=== PATIENT | female | born 1990 | race American Indian/Alaskan Native ===

== ENCOUNTER 2017-05-09 18:15 | Emergency (ER) | payer MEDICAID ==
[2017-05-09 18:29] VITALS: BP 134/81
[2017-05-09] MEDS ORDERED: Acetaminophen/oxyCODONE 325-5 MG Tab PO ONE (19:37)
--- NOTE | 2017-05-09 19:37 | EDM.PDOC ---
ED HPI GENERAL MEDICAL PROBLEM - General Chief Complaint: Lower Extremity Injury/Pain Stated Complaint: RT ANKLE PAIN Time Seen by Provider: 05/09/17 18:30 Source of Information: Reports: Patient History Limitations: Reports: No Limitations - History of Present Illness INITIAL COMMENTS - FREE TEXT/NARRATIVE: pt arrived with a swollen painful rt ankle. She went off a curb and she twisted her rt ankle. She has pain on the lateral aspect of the ankle and into the foot. Onset: Other ( last nite. ) Duration: Hour(s): Location: Reports: Lower Extremity, Right Associated Symptoms: Reports: No Other Symptoms Right Ankle Pain Score (Numeric/FACES): 8 - Related Data Allergies Allergy/AdvReac Type Severity Reaction Status Date / Time No Known Allergies Allergy Verified 05/09/17 18:33 Home Meds: Home Meds Ibuprofen [Motrin] 800 mg PO Q6HR PRN 03/24/16 [History] Mirtazapine 7.5 mg PO DAILY 05/09/17 [History] Venlafaxine HCl [Venlafaxine ER] 75 mg PO DAILY 05/09/17 [History] cloNIDine HCl [Clonidine HCl] 0.1 mg PO DAILY 05/09/17 [History] Past Medical History - Past Health History Medical/Surgical History: Denies Medical/Surgical History HEENT History: Reports: Impaired Vision Other HEENT History: c/o of L upper tooth pain 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 , 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: G-5 P-4 Psychiatric History: Reports: Anxiety, Depression, PTSD Hematologic History: Reports: Anemia - Past Surgical History Female Surgical History: Reports: Salpingo-Oophorectomy Other Female Surgeries/Procedures: right Social & Family History - Tobacco Use Smoking Status *Q: Never Smoker Second Hand Smoke Exposure: No - Caffeine Use Caffeine Use: Reports: Soda - Alcohol Use Days Per Week of Alcohol Use: 0 - Recreational Drug Use Recreational Drug Use: No Review of Systems - Review of Systems Review Of Systems: See Below Constitutional: Reports: No Symptoms Eyes: Reports: No Symptoms Ears: Reports: No Symptoms Nose: Reports: No Symptoms Mouth/Throat: Reports: No Symptoms Respiratory: Reports: No Symptoms Cardiovascular: Reports: No Symptoms GI/Abdominal: Reports: No Symptoms Genitourinary: Reports: No Symptoms Musculoskeletal: Reports: Other (pain in rt ankle. ) Skin: Reports: No Symptoms Neurological: Reports: No Symptoms ED EXAM, GENERAL - Physical Exam Exam: See Below Free Text/Narrative:: pt is having alot of pain in rt anle and into the foot. Exam Limited By: No Limitations General Appearance: Alert, Anxious Nose: Normal Inspection Throat/Mouth: Normal Inspection Head: Atraumatic Neck: Normal Inspection Respiratory/Chest: No Respiratory Distress Cardiovascular: Regular Rate, Rhythm Extremities: Other (pt has a painful rt ankle with swelling laterally, She is also tender down into the foot. ) Neurological: Alert, Oriented, Normal Cognition Psychiatric: Normal Affect Course - Vital Signs Last Recorded V/S: Last Vital Signs Temp 36.8 C 05/09/17 18:31 Pulse 94 05/09/17 18:31 Resp 15 05/09/17 18:31 BP 134/81 05/09/17 18:31 Pulse Ox 95 05/09/17 18:31 - Orders/Labs/Meds Orders: Active Orders 24 hr Category Date Time Status Ankle Min 3V Rt [CR] Stat Exams 05/09/17 18:36 Ordered Foot Comp Min 3V Rt [CR] Stat Exams 05/09/17 18:36 Taken Meds: Medications Discontinued Medications Generic Name Dose Route Start Last Admin Trade Name Freq PRN Reason Stop Dose Admin Oxycodone/Acetaminophen 1 tab 05/09/17 19:37 Percocet 325-5 Mg PO 05/09/17 19:38 ONETIME ONE - Re-Assessments/Exams Free Text/Narrative Re-Assessment/Exam: 05/09/17 19:48 pt had an xray of the ankle and foot which was neg. Departure - Departure Time of Disposition: 19:35 Disposition: Home, Self-Care 01 Condition: Fair Clinical Impression: Moderate right ankle sprain - Discharge Information Instructions: Ankle Sprain Referrals: PCP,None [Primary Care Provider] - Forms: ED Department Discharge Care Plan Goals: elevate ice--cool pack to area, crutches. motrin 600mg tid, tyleno 3 1 tab q6h prn for pain. appt with regular Dr In 1 week send a ice pack home with the pt. , Cool packs should be used for the next 72 hours and then use moist heat or soak warm water stirup splint will be applied - My Orders Last 24 Hours: My Active Orders 05/09/17 18:36 Ankle Min 3V Rt [CR] Stat Foot Comp Min 3V Rt [CR] Stat - Assessment/Plan Last 24 Hours: My Active Orders 05/09/17 18:36 Ankle Min 3V Rt [CR] Stat Foot Comp Min 3V Rt [CR] Stat
--- NOTE | 2017-05-10 08:51 | CR ---
Ankle Min 3V Rt, Foot Comp Min 3V Rt INDICATION: painful rt foot FINDINGS: 3 views of the right ankle and 3 views of the right foot. Tiny linear calcifications adjac ent to the distal fibula could represent a tiny acute or chronic avulsion fracture. Accessory ossicl e adjacent to the cuboid. Right foot and ankle are otherwise negative.
== END 2017-05-09 19:55 | disposition home or self-care (01) ==
LOC: JP.ED 18:15
DX: S93.401A Sprain of unspecified ligament of right ankle, initial encounter (principal); F41.9 Anxiety disorder, unspecified; F32.9 Major depressive disorder, single episode, unspecified; D64.9 Anemia, unspecified; F43.10 Post-traumatic stress disorder, unspecified; Z90.721 Acquired absence of ovaries, unilateral; Z79.899 Other long term (current) drug therapy; X50.1XXA Overexertion from prolonged static or awkward postures, initial encounter
CPT/HCPCS: 73610; 73630; 99284; A9270; 99283

== ENCOUNTER 2017-06-16 02:02 | Emergency (ER) | payer MEDICAID ==
--- NOTE | 2017-06-16 02:40 | EDM.PDOCBH ---
[id number]: [facility] [place] Time Seen by Provider: 06/16/17 02:20 Source of Information: Reports: Family History Limitations: Reports: Intoxication - History of Present Illness INITIAL COMMENTS - FREE TEXT/NARRATIVE: 26-year-old female brought in by her family because she is acutely intoxicated with heroin and possibly other unknown chemicals. She is very agitated, a family member gave her a dose of Narcan. She is confused but very stable physically. No fever. Vitals are stable. Onset: Unknown/Unsure Associated Symptoms: Denies: Nausea/Vomiting - Related Data Allergies Allergy/AdvReac Type Severity Reaction Status Date / Time No Known Allergies Allergy Verified 06/16/17 02:26 Home Meds: Home Meds Ibuprofen [Motrin] 800 mg PO Q6HR PRN 03/24/16 [History] Mirtazapine 7.5 mg PO DAILY 05/09/17 [History] Venlafaxine HCl [Venlafaxine ER] 75 mg PO DAILY 05/09/17 [History] cloNIDine HCl [Clonidine HCl] 0.1 mg PO DAILY 05/09/17 [History] Past Medical History - Past Health History Medical/Surgical History: Denies Medical/Surgical History HEENT History: Reports: Impaired Vision Other HEENT History: c/o of L upper tooth pain 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 , 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: G-5 P-4 Psychiatric History: Reports: Anxiety, Depression, PTSD Hematologic History: Reports: Anemia - Past Surgical History Female Surgical History: Reports: Salpingo-Oophorectomy Other Female Surgeries/Procedures: right Social & Family History - Tobacco Use Smoking Status *Q: Never Smoker Second Hand Smoke Exposure: No - Caffeine Use Caffeine Use: Reports: Soda - Alcohol Use Days Per Week of Alcohol Use: 0 - Recreational Drug Use Recreational Drug Use: No ED ROS GENERAL - Review of Systems Review Of Systems: Unable To Obtain ED EXAM, BEHAVIORAL HEALTH - Physical Exam Exam: See Below Exam Limited By: Altered Mental Status General Appearance: Alert, Mild Distress (Agitated and anxious, uncooperative) Eye Exam: Bilateral Eye: EOMI (Focuses well when spoken to) Respiratory/Chest: No Respiratory Distress, Lungs Clear Cardiovascular: Regular Rate, Rhythm GI/Abdominal: Non-Tender Neurological: Disoriented to Place, Disoriented to Time Psychiatric: Agitated Skin Exam: Warm, Dry COURSE, BEHAVIORAL HEALTH COMP - Course Vital Signs: Last Vital Signs Temp 98.7 F 06/16/17 02:18 Pulse 98 06/16/17 02:56 Resp 20 06/16/17 02:56 BP 141/91 H 06/16/17 02:56 Pulse Ox 99 06/16/17 02:56 Re-Assessment/Re-Exam: Patient was monitored for over half an hour and continued to be physically stable and became more alert. She was still agitated but the family wanted to take her home, she would not supply a urine. She was discharged with the advice to avoid illicit drug use in the future. Departure - Departure Time of Disposition: 02:58 Disposition: Home, Self-Care 01 Condition: Fair Clinical Impression: Drug abuse - Discharge Information Instructions: Opioid Overdose Referrals: PCP,None [Primary Care Provider] - Forms: ED Department Discharge Care Plan Goals: Avoid using illicit drugs in the future.
[2017-06-16 02:57] VITALS: BP 141/91
== END 2017-06-16 02:58 | disposition home or self-care (01) ==
LOC: JP.ED 02:02
DX: F19.10 Other psychoactive substance abuse, uncomplicated (principal); F41.9 Anxiety disorder, unspecified; F32.9 Major depressive disorder, single episode, unspecified; Z79.899 Other long term (current) drug therapy; Z90.721 Acquired absence of ovaries, unilateral
CPT/HCPCS: 99283; 99284

== ENCOUNTER 2019-07-13 05:04 | Emergency (ER) | payer MEDICAID ==
[2019-07-13 05:28] VITALS: BP 153/99; PULSE 106
--- NOTE | 2019-07-13 05:49 | EDM.PDOC ---
ED HPI GENERAL MEDICAL PROBLEM - General Chief Complaint: Upper Extremity Injury/Pain Stated Complaint: RED LINE GOING UP LEFT ARM Time Seen by Provider: 07/13/19 05:35 Source of Information: Reports: Patient, Old Records, RN History Limitations: Reports: No Limitations - History of Present Illness INITIAL COMMENTS - FREE TEXT/NARRATIVE: 28 yo NA female IV drug user presents with a concern that she has an infection in her L arm. No fevers. Use IV drugs via her L hand earlier last evening. She denies L axillary tenderness or chills. No other sx's. No self tx prior to arrival. 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) Left Arm Pain Score (Numeric/FACES): 3 - Related Data Allergies Allergy/AdvReac Type Severity Reaction Status Date / Time No Known Allergies Allergy Verified 07/13/19 05:27 Home Meds: Home Meds Ibuprofen [Motrin] 800 mg PO Q6HR PRN 03/24/16 [History] Mirtazapine 7.5 mg PO DAILY 05/09/17 [History] Venlafaxine HCl [Venlafaxine ER] 75 mg PO DAILY 05/09/17 [History] cloNIDine HCl [Clonidine HCl] 0.1 mg PO DAILY 05/09/17 [History] Past Medical History - Past Health History Medical/Surgical History: Denies Medical/Surgical History HEENT History: Reports: Impaired Vision Other HEENT History: c/o of L upper tooth pain 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 , 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 Psychiatric History: Reports: Addiction, Anxiety, Depression, PTSD Endocrine/Metabolic History: Reports: Obesity/BMI 30+ Hematologic History: Reports: Anemia - Past Surgical History Female Surgical History: Reports: Salpingo-Oophorectomy Other Female Surgeries/Procedures: right Social & Family History - Tobacco Use Smoking Status *Q: Never Smoker - Caffeine Use Caffeine Use: Reports: Coffee, Energy Drinks, Soda, Tea - Recreational Drug Use Recreational Drug Use: Yes Recreational Drug Type: Reports: Heroin, Methamphetamine Review of Systems - Review of Systems Review Of Systems: See Below Constitutional: Reports: No Symptoms Musculoskeletal: Reports: No Symptoms Skin: Reports: Other (Minimally reddened L arm) Neurological: Reports: No Symptoms ED EXAM, GENERAL - Physical Exam Exam: See Below Exam Limited By: No Limitations General Appearance: Alert, WD/WN, No Apparent Distress Eye Exam: Bilateral Eye: Normal Inspection Ears: Normal External Exam, Normal Canal, Hearing Grossly Normal Ear Exam: Bilateral Ear: Auricle Normal, Canal Normal Nose: Normal Inspection, No Blood Throat/Mouth: Normal Inspection, Normal Lips, Normal Oropharynx, Normal Voice, No Airway Compromise Head: Atraumatic, Normocephalic Respiratory/Chest: No Respiratory Distress, No Accessory Muscle Use Cardiovascular: Regular Rate, Rhythm, No Edema, Tachycardia Back Exam: No: CVA Tenderness (R), CVA Tenderness (L) Extremities: Normal Inspection, Normal Range of Motion, Non-Tender, No Pedal Edema. No: Pedal Edema Neurological: Alert, Oriented, CN II-XII Intact, Normal Cognition, No Motor/ Sensory Deficits Psychiatric: Normal Affect, Normal Mood Skin Exam: Warm, Dry, Intact, Erythema (Very fainy redness to the medial L arm from the forearm to just prox to that elbow. Area is warmer than the surrounding skin. No axillary tenderness. ), Increased Warmth. No: Wound/ Incision Course - Vital Signs Last Recorded V/S: Last Vital Signs Temp 35.7 C 07/13/19 05:25 Pulse 106 H 07/13/19 05:25 Resp 18 07/13/19 05:25 BP 153/99 H 07/13/19 05:25 Pulse Ox 97 07/13/19 05:25 Departure - Departure Time of Disposition: 05:49 Disposition: Home, Self-Care 01 Condition: Good Clinical Impression: Cellulitis Qualifiers: Site of cellulitis: extremity Site of cellulitis of extremity: upper extremity Laterality: left Qualified Code(s): L03.114 - Cellulitis of left upper limb - Discharge Information *PRESCRIPTION DRUG MONITORING PROGRAM REVIEWED*: No *COPY OF PRESCRIPTION DRUG MONITORING REPORT IN PATIENT ALLISON: No Instructions: Cellulitis, Adult, [id number] Referrals: PCP,None [Primary Care Provider] - Additional Instructions: Take cephalexin as directed. Recheck with your provider tomorrow in the clinic. Acetaminophen as needed for pain relief.
== END 2019-07-13 05:56 | disposition home or self-care (01) ==
LOC: JP.ED 05:04
DX: L03.114 Cellulitis of left upper limb (principal); F32.9 Major depressive disorder, single episode, unspecified; F41.9 Anxiety disorder, unspecified; E66.9 Obesity, unspecified; Z79.899 Other long term (current) drug therapy; Z86.2 Personal history of diseases of the blood and blood-forming organs and certain disorders involving the immune mechanism; Z90.722 Acquired absence of ovaries, bilateral; Z68.32 Body mass index [BMI] 32.0-32.9, adult
CPT/HCPCS: 99283

== ENCOUNTER 2020-06-26 16:06 | Emergency (ER) | payer MEDICAID ==
[2020-06-26 16:22] VITALS: BP 110/80; PULSE 97
--- NOTE | 2020-06-26 16:48 | EDM.PDOC ---
ED HPI GENERAL MEDICAL PROBLEM - General Chief Complaint: Eye Problems Stated Complaint: PAIN IN RT EYE Time Seen by Provider: 06/26/20 16:30 Source of Information: Reports: Patient History Limitations: Reports: No Limitations - History of Present Illness INITIAL COMMENTS - FREE TEXT/NARRATIVE: 29-year-old female with a swollen nodular lesions on her eyelids, 3 of them on the right and one on the left over the past 3 to 4 days. No visual complaints, fevers or chills. 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 AND 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: G-5 P-4 Psychiatric History: Reports: Addiction, Anxiety, Depression, PTSD Endocrine/Metabolic History: Reports: Obesity/BMI 30+ Hematologic History: Reports: Anemia - Past Surgical History Female Surgical History: Reports: Salpingo-Oophorectomy Other Female Surgeries/Procedures: right Social & Family History - Tobacco Use Smoking Status *Q: Never Smoker - Caffeine Use Caffeine Use: Reports: Coffee, Soda - Recreational Drug Use Recreational Drug Use: No ED ROS GENERAL - Review of Systems Review Of Systems: See Below Constitutional: Denies: Fever, Chills HEENT: Reports: Eye Pain (Some discomfort in the right eye from the pressure of the eyelid). Denies: Vision Change Respiratory: Denies: Shortness of Breath GI/Abdominal: Reports: No Symptoms Skin: Reports: Erythema (Erythema and swelling of the right upper and lower eyelids, the left upper eyelid is inflamed as well) ED EXAM GENERAL W FULL EYE - Physical Exam Exam: See Below Exam Limited By: No Limitations General Appearance: Alert, No Apparent Distress Eye Exam: Bilateral Eye: EOMI Eyelids: Left: Erythema, Bilateral: Stye (3 separate styes are present on the upper and lower right eyelids, and another stye on the left eyelid) Conjunctiva & Sclera: Bilateral: Conjunctival Edema Cornea Exam: Bilateral: Normal Appearance Extraocular Movements: Bilateral: Intact Head: Atraumatic Respiratory/Chest: No Respiratory Distress, Lungs Clear Neurological: Alert, Oriented Psychiatric: Normal Affect, Normal Mood Course - Vital Signs Last Recorded V/S: Last Vital Signs Temp 98.2 F 06/26/20 16:30 Pulse 97 06/26/20 16:30 Resp 16 06/26/20 16:30 BP 110/80 06/26/20 16:30 Pulse Ox 97 06/26/20 16:30 - Re-Assessments/Exams Free Text/Narrative Re-Assessment/Exam: 06/26/20 16:46 Very concerning that she has so many separate styes at the same time on both eyes simultaneously. I am concerned about a bacterial inflammation such as MRSA. She was placed on clindamycin 300 mg 3 times a day for 5 days and erythromycin ointment. Continue with warm compresses to the eyes and recheck with the eye physician on Sunday or Sunday if not improving satisfactorily. Departure - Departure Time of Disposition: 16:52 Disposition: Home, Self-Care 01 Clinical Impression: Hordeolum externum (stye) Qualifiers: Laterality: right Eyelid: upper Qualified Code(s): H00.011 - Hordeolum externum right upper eyelid - Discharge Information Instructions: Stye Referrals: PCP,None [Primary Care Provider] - Forms: ED Department Discharge Care Plan Goals: Take 2 pills of antibiotic 3 times a day until gone, and use ointment in your eyes 3 times a day as well. Recheck at [facility] in [place] in 2 to 3 days if not improving rapidly. Sepsis Event Note (ED) - Evaluation Sepsis Screening Result: No Definite Risk
== END 2020-06-26 16:52 | disposition home or self-care (01) ==
LOC: JP.ED 16:06
DX: H00.011 Hordeolum externum right upper eyelid (principal); E66.9 Obesity, unspecified; Z68.32 Body mass index [BMI] 32.0-32.9, adult
CPT/HCPCS: 99283

== ENCOUNTER 2020-07-06 18:51 | Emergency (ER) | payer MEDICAID ==
[2020-07-06 19:31] VITALS: BP 121/71; PULSE 105
[2020-07-06] MEDS ORDERED: Ketorolac 30 MG/ML SDV IM ONE (20:01)
--- NOTE | 2020-07-06 20:03 | EDM.PDOC ---
ED HPI GENERAL MEDICAL PROBLEM - General Chief Complaint: Lower Extremity Injury/Pain Stated Complaint: INJURED L ANKLE Time Seen by Provider: 07/06/20 19:47 Source of Information: Reports: Patient, RN Notes Reviewed History Limitations: Reports: No Limitations - History of Present Illness INITIAL COMMENTS - FREE TEXT/NARRATIVE: 29-year-old female presents emergency department a complaint of left ankle pain, she injured herself last night with a twisting injury ankle inversion pain is been so severe she is unable to bear weight has been using crutches at home Left Ankle Pain Score (Numeric/FACES): 8 - Related Data Allergies Allergy/AdvReac Type Severity Reaction Status Date / Time No Known Allergies Allergy Verified 07/06/20 19:33 Home Meds: Home Meds Pnv No.95/Ferrous Fum/Folic AC [ Vitamins Tablet] 1 tab PO DAILY 06/26/20 [History] Erythromycin Base [Erythromycin] 1 drop EYEBOTH BID 07/06/20 [History] Past Medical History HEENT History: Reports: Impaired Vision Other HEENT History: c/o of L upper tooth pain 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 , 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 Psychiatric History: Reports: Addiction, Anxiety, Depression, PTSD Endocrine/Metabolic History: Reports: Obesity/BMI 30+ Hematologic History: Reports: Anemia - Past Surgical History Head Surgeries/Procedures: Reports: None HEENT Surgical History: Reports: None Female Surgical History: Reports: Salpingo-Oophorectomy Other Female Surgeries/Procedures: right Endocrine Surgical History: Reports: None Musculoskeletal Surgical History: Reports: Other (See Below) Dermatological Surgical History: Reports: None Social & Family History - Tobacco Use Smoking Status *Q: Never Smoker Second Hand Smoke Exposure: No - Caffeine Use Caffeine Use: Reports: Coffee, Energy Drinks, Soda, Tea - Recreational Drug Use Recreational Drug Use: No Review of Systems - Review of Systems Review Of Systems: See Below Constitutional: Reports: No Symptoms Musculoskeletal: Reports: Joint Pain (Ankle) ED EXAM, GENERAL - Physical Exam Exam: See Below Free Text/Narrative:: Examination of the left ankle I do not appreciate any erythema there is no edema however she is exquisitely tender to any motion and also difficult to perform any type of exam there is no appreciable tenderness at the knee pedal pulses +2 Exam Limited By: No Limitations General Appearance: Alert, WD/WN, No Apparent Distress Course - Vital Signs Last Recorded V/S: Last Vital Signs Temp 98.8 F 07/06/20 19:36 Pulse 105 H 07/06/20 19:36 Resp 16 07/06/20 19:36 BP 121/71 07/06/20 19:36 Pulse Ox 97 07/06/20 19:36 - Orders/Labs/Meds Orders: Active Orders 24 hr Category Date Time Status Ankle Min 3V Lt [CR] Stat Exams 07/06/20 20:01 Taken Meds: Medications Discontinued Medications Generic Name Dose Route Start Last Admin Trade Name Bianca PRN Reason Stop Dose Admin Ketorolac Tromethamine 30 mg 07/06/20 20:01 Toradol IM 07/06/20 20:02 ONETIME ONE Departure - Departure Time of Disposition: 20:27 Disposition: Home, Self-Care 01 Condition: Fair Clinical Impression: Left ankle sprain Qualifiers: Encounter type: initial encounter Involved ligament of ankle: unspecified ligament Qualified Code(s): S93.402A - Sprain of unspecified ligament of left ankle, initial encounter - Discharge Information Instructions: How to Use a Stirrup Ankle Brace, [id number], Ankle Sprain Referrals: PCP,None [Primary Care Provider] - Forms: ED Department Discharge Additional Instructions: Continue to use Tylenol as needed for pain control, continue to use the splint as needed for comfort, continue to use the crutches as needed, please followup with your primary care provider in 3-5 days if not better, please call return to the emergency department with worsening of symptoms. Sepsis Event Note (ED) - Evaluation Sepsis Screening Result: No Definite Risk - Focused Exam Vital Signs: Vital Signs Temp Pulse Resp BP Pulse Ox 07/06/20 19:36 98.8 F 105 H 16 121/71 97 07/06/20 19:29 98.8 F 105 H 16 121/71 97 - My Orders Last 24 Hours: My Active Orders 07/06/20 20:01 Ankle Min 3V Lt [CR] Stat - Assessment/Plan Last 24 Hours: My Active Orders 07/06/20 20:01 Ankle Min 3V Lt [CR] Stat Plan: Assessment Acuity = acute Site and laterality = left ankle sprain Etiology = trauma Manifestations = none Location of injury = Home Lab values = ankle x-ray I did review films myself I cannot appreciate any acute process, the official read from radiology is pending Plan Placed in air gel splint she has crutches at home will follow-up primary care 3 to 5 days if not better This note was dictated using [employer] voice recognition software please call with any questions on syntax or grammar.
--- NOTE | 2020-07-08 09:39 | CR ---
Ankle Min 3V Lt CLINICAL HISTORY: Pain, injury FINDINGS: The soft tissues are swollen particularly over the lateral malleolus.. No acute fracture or dislocation is noted. Ankle mortise is intact. Impression: Lateral soft tissue swelling No fracture or dislocation
== END 2020-07-06 20:40 | disposition home or self-care (01) ==
LOC: JP.ED 18:51
DX: S93.402A Sprain of unspecified ligament of left ankle, initial encounter (principal); E66.9 Obesity, unspecified; Z68.30 Body mass index [BMI] 30.0-30.9, adult; X50.1XXA Overexertion from prolonged static or awkward postures, initial encounter
CPT/HCPCS: 73610-26-LT; 73610-LT; 96372; 99283

== ENCOUNTER 2021-04-24 19:20 | Emergency (ER) | payer MEDICAID ==
[2021-04-24 20:20] VITALS: BP 120/74; PULSE 70
--- NOTE | 2021-04-24 20:31 | EDM.PDOC ---
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 No fevers no other symptoms - Related Data Allergies Allergy/AdvReac Type Severity Reaction Status Date / Time No Known Allergies Allergy Verified 04/24/21 20:12 Home Meds: Home Meds Sertraline [Zoloft] 50 mg PO DAILY 04/24/21 [History] cloNIDine HCL [Clonidine HCl] 0.1 mg PO BID 04/24/21 [History] Past Medical History HEENT History: Reports: Impaired Vision Other HEENT History: c/o of L upper tooth pain SHAKER TENDER History: Reports: Ectopic , Other SHAKER TENDER History: G-5 P-4 Musculoskeletal History: Reports: Fracture Psychiatric History: Reports: Addiction, Anxiety, Depression, PTSD Endocrine/Metabolic History: Reports: Obesity/BMI 30+ Hematologic History: Reports: Anemia Dermatologic History: Reports: Cellulitis - Infectious Disease History Infectious Disease History: Reports: Chicken Pox, Novel Coronavirus, Other (See Below) Other Infectious Disease History: tested for hep c but havent gotten results yet - Past Surgical History Head Surgeries/Procedures: Reports: None HEENT Surgical History: Reports: None Female Surgical History: Reports: Salpingo-Oophorectomy Other Female Surgeries/Procedures: right Endocrine Surgical History: Reports: None Musculoskeletal Surgical History: Reports: Other (See Below) Other Musculoskeletal Surgeries/Procedures:: hand surgery Dermatological Surgical History: Reports: None Social & Family History - Tobacco Use Tobacco Use Status *Q: Never Tobacco User - Caffeine Use Caffeine Use: Reports: Coffee, Energy Drinks, Soda, Tea - Recreational Drug Use Recreational Drug Use: Yes Drug Use in Last 12 Months: Yes Recreational Drug Type: Reports: Heroin, Methamphetamine Recreational Drug Last Use: 8mos sober ED ROS GENERAL - Review of Systems Review Of Systems: See Below Constitutional: Denies: Fever, Chills Skin: Reports: Pruritis, Rash, Wound, Change in Color ED EXAM, SKIN/RASH Exam: See Below Text/Narrative:: Examination of the right lower extremity she has 2 areas of excoriation 1 has thick purulent discharge there is erythematous patches around both these areas about the size of a golf ball I do not appreciate any red streaking Exam Limited By: No Limitations General Appearance: Alert, WD/WN, No Apparent Distress Course - Vital Signs Last Recorded V/S: Last Vital Signs Temp 97.4 F 04/24/21 20:20 Pulse 70 04/24/21 20:20 Resp 20 04/24/21 20:20 BP 120/74 04/24/21 20:20 Pulse Ox 97 04/24/21 20:20 Departure - Departure Time of Disposition: 20:31 Disposition: Home, Self-Care 01 Condition: Fair Clinical Impression: Cellulitis of right leg - Discharge Information Instructions: Cellulitis, Adult Referrals: PCP,None [Primary Care Provider] - Additional Instructions: Take full course of antibiotics, try Benadryl for symptomatic relief of the itching try not to scratch this area as you will spread the infection, please followup with your primary care provider in 3-5 days if not better, please call return to the emergency department with worsening of symptoms. Sepsis Event Note (ED) - Evaluation Sepsis Screening Result: No Definite Risk - Focused Exam Vital Signs: Vital Signs Temp Pulse Resp BP Pulse Ox 04/24/21 20:20 97.4 F 70 20 120/74 97 04/24/21 20:19 97.4 F 70 20 120/74 97 - Assessment/Plan Plan: Assessment Acuity = acute Site and laterality = cellulitis right lower extremity Etiology = probable bacterial cause concerned about MRSA Manifestations = none Location of injury = Home Lab values = none Plan Elected to treat empirically with Bactrim DS 1 tab p.o. twice daily x10 days follow-up primary care in 5 to 7 days if no improvement This note was dictated using [employer] voice recognition software please call with any questions on syntax or grammar.
== END 2021-04-24 20:48 | disposition home or self-care (01) ==
LOC: JP.ED 19:20
DX: L03.115 Cellulitis of right lower limb (principal); E66.9 Obesity, unspecified; Z68.38 Body mass index [BMI] 38.0-38.9, adult; Z79.899 Other long term (current) drug therapy
CPT/HCPCS: 99282

== ENCOUNTER 2021-06-16 11:49 | Emergency (ER) | payer MEDICAID ==
[2021-06-16 12:16] VITALS: BP 132/89; PULSE 61
--- NOTE | 2021-06-16 13:13 | EDM.PDOC ---
<Netta Schulte - Last Filed: 06/16/21 16:58> ED HPI GENERAL MEDICAL PROBLEM - General Chief Complaint: Neuro Symptoms/Deficits Stated Complaint: RT SIDE OF FACE IS NUMB Time Seen by Provider: 06/16/21 13:00 Source of Information: Reports: Patient History Limitations: Reports: No Limitations - History of Present Illness INITIAL COMMENTS - FREE TEXT/NARRATIVE: 30 year old female arrives with complaints of facial numbness and right sided facial droop. She reports that she was brushing her teeth last night went she noticed her tongue felt tingly and numb, and then she noticed some drool and right side facial droop. She went to sleep and woke in the AM with right ear pain, right eye dryness, excessive eye watering on the right side, right facial droop continues with numbness to right side of face. No other focal neuro deficits. No history of bells palsy. No recent known tick bite per patient. Afebrile. Onset: Today Onset Date: 06/16/21 Duration: Day(s): Location: Reports: Other (left facial droop, left ear irritation, left eye dryness, and left facial numbness) Quality: Reports: Other (numbness) Severity: Mild Improves with: Reports: None Worsens with: Reports: None Context: Reports: Other (was brushing teeth when noticed her tongue felt "weird") Associated Symptoms: Reports: Headaches - Related Data Allergies Allergy/AdvReac Type Severity Reaction Status Date / Time No Known Allergies Allergy Verified 06/16/21 12:14 Home Meds: Home Meds Sertraline [Zoloft] 50 mg PO DAILY 04/24/21 [History] cloNIDine HCL [Clonidine HCl] 0.1 mg PO BID 04/24/21 [History] Past Medical History - Past Health History Medical/Surgical History: Denies Medical/Surgical History HEENT History: Reports: Impaired Vision Other HEENT History: c/o of L upper tooth pain Genitourinary History: Reports: None RESCUE INSTRUCTOR History: Reports: Ectopic , Other RESCUE INSTRUCTOR History: G-5 P-4 Musculoskeletal History: Reports: Fracture Psychiatric History: Reports: Addiction, Anxiety, Depression, PTSD Endocrine/Metabolic History: Reports: Obesity/BMI 30+ Hematologic History: Reports: Anemia Dermatologic History: Reports: Cellulitis - Infectious Disease History Infectious Disease History: Reports: Chicken Pox, Novel Coronavirus, Other (See Below) Other Infectious Disease History: tested for hep c but havent gotten results yet - Past Surgical History Head Surgeries/Procedures: Reports: None HEENT Surgical History: Reports: None Female Surgical History: Reports: Salpingo-Oophorectomy Other Female Surgeries/Procedures: right Endocrine Surgical History: Reports: None Musculoskeletal Surgical History: Reports: Other (See Below) Other Musculoskeletal Surgeries/Procedures:: hand surgery Dermatological Surgical History: Reports: None Social & Family History - Tobacco Use Tobacco Use Status *Q: Never Tobacco User Second Hand Smoke Exposure: No - Caffeine Use Caffeine Use: Reports: Coffee, Energy Drinks, Soda, Tea - Recreational Drug Use Recreational Drug Use: No ED ROS GENERAL - Review of Systems Review Of Systems: See Below Constitutional: Reports: No Symptoms. Denies: Fever, Chills, Malaise, Weakness HEENT: Reports: Ear Pain (right ear was mildly painful since last night, hearing intact) Respiratory: Reports: No Symptoms. Denies: Shortness of Breath, Wheezing Cardiovascular: Reports: No Symptoms. Denies: Chest Pain, Blood Pressure Problem Endocrine: Reports: No Symptoms GI/Abdominal: Reports: No Symptoms. Denies: Abdominal Pain, Bloody Stool, Diarrhea, Nausea, Vomiting : Reports: No Symptoms. Denies: Flank Pain, Hematuria Musculoskeletal: Reports: No Symptoms. Denies: Neck Pain, Shoulder Pain, Arm Pain Skin: Reports: No Symptoms. Denies: Diaphoresis, Dryness, Erythema, Lumps Neurological: Reports: Headache, Numbness, Tingling. Denies: Confusion, Dizziness, Tremors, Trouble Speaking, Difficulty Walking, Weakness, Change in Speech, Gait Disturbance Psychiatric: Reports: No Symptoms Hematologic/Lymphatic: Reports: No Symptoms Immunologic: Reports: No Symptoms ED EXAM, NEURO - Physical Exam Exam: See Below Text/Narrative:: Grisel is resting on exam chair, well appearing. She has mild right sided facial droop, right facial numbness and tingling, right eye dryness. 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 Abdominal is non tender and has active bowel sounds, Lungs are clear throughout. Respirations are regular and non labored. skin is warm and dry. She is alert and oriented. Exam Limited By: No Limitations General Appearance: Alert, WD/WN, No Apparent Distress Ears: Normal External Exam, Normal Canal, Normal TMs Nose: Normal Inspection, No Blood Throat/Mouth: Normal Inspection, Normal Lips, Normal Teeth, No Airway Compromise Head Exam: Atraumatic Neck: Normal Inspection, Non-Tender, Full Range of Motion Respiratory/Chest: No Respiratory Distress, Lungs Clear, Normal Breath Sounds, No Accessory Muscle Use, Chest Non-Tender Cardiovascular: Normal Peripheral Pulses, Regular Rate, Rhythm, No Edema GI/Abdominal: Normal Bowel Sounds, Soft, Non-Tender (Female) Exam: Deferred Rectal (Female) Exam: Deferred Neurological: Alert, Normal Mood/Affect, Normal Plantar Flexion, Normal Gait, Normal Reflexes, Oriented x 3, Other (normal romberg, ) Back Exam: Normal Inspection, Full Range of Motion Extremities: Normal Inspection, Normal Range of Motion, Non-Tender, No Pedal Edema, Normal Capillary Refill Psychiatric: Normal Affect, Normal Mood Skin Exam: Warm, Dry, Intact, No Rash Course - Vital Signs Text/Narrative:: discussed with patient that she likely has bells palsy. She is ok with tick bourne illness labs to be drawn, waiting for those at the moment. Departure - Departure Time of Disposition: 14:36 Disposition: Home, Self-Care 01 Condition: Good Clinical Impression: Lew's palsy, Lyme disease - Discharge Information Instructions: Lew Palsy, Adult, Lyme Disease Referrals: PCP,None [Primary Care Provider] - Forms: ED Department Discharge Additional Instructions: Your lyme disease test came back positive and this is likely the cause of your bells palsy. Symptoms should improve with medications prescribed today. Please take doxycycline (antibiotic) 2 x per day for 20 days and begin your Medrol dose pack (Steroid) as well. Return to the ER if you have any new concerns or if your symptoms do not seem to improve with medications. Tylenol/ ibuprofen for he adache/ generalized body aches. Sepsis Event Note (ED) - Evaluation Sepsis Screening Result: No Definite Risk <Jaun Duarte - Last Filed: 06/16/21 18:53> Course - Vital Signs Last Recorded V/S: Last Vital Signs Temp 98 F 06/16/21 12:16 Pulse 61 06/16/21 12:16 Resp 16 06/16/21 12:16 BP 132/89 06/16/21 12:16 Pulse Ox 97 06/16/21 12:16 - Orders/Labs/Meds Orders: Active Orders 24 hr Category Date Time Status LYME, LINE BLOT, SERUM Stat Lab 06/16/21 13:30 Received Labs: Laboratory Tests 06/16/21 Range/Units 13:30 Lyme Disease IgG Ab Negative (Negative) Lyme Disease IgM Ab Equivocal H (Negative) Sepsis Event Note (ED) - Focused Exam Vital Signs: Vital Signs Temp Pulse Resp BP Pulse Ox 06/16/21 12:16 98 F 61 16 132/89 97 Attestation - Student - Attestation Statement Attestation Statement: I personally performed or re-performed the physical examination and medical decision making. I have verified all student documentation or findings, including history, physical exam and/or medical decision making.
== END 2021-06-16 14:36 | disposition home or self-care (01) ==
LOC: JP.ED 11:49
DX: G51.0 Bell's palsy (principal); A69.20 Lyme disease, unspecified; E66.9 Obesity, unspecified; Z68.41 Body mass index [BMI] 40.0-44.9, adult; Z86.16 Personal history of COVID-19
CPT/HCPCS: 86617; 86617-59; 86618; 99284

== ENCOUNTER 2021-07-26 21:01 | Emergency (ER) | payer MEDICAID ==
[2021-07-26 21:57] VITALS: BP 105/56; PULSE 95
--- NOTE | 2021-07-26 22:36 | EDM.PDOC ---
ED HPI GENERAL MEDICAL PROBLEM - General Chief Complaint: Fever Stated Complaint: FEVER, BODY ACHE, FATIGUE, Time Seen by Provider: 07/26/21 22:20 Source of Information: Reports: Patient History Limitations: Reports: No Limitations - History of Present Illness INITIAL COMMENTS - FREE TEXT/NARRATIVE: 30-year-old female with several days of generalized malaise, mild sore throat, intermittent low-grade fevers and generalized muscle aches. She was seen in the clinic today and started on nitrofurantoin for a UTI, but she comes in tonight concerned she may have Covid. She is unvaccinated. No fever currently, vitals are stable and no shortness of breath. Onset: Gradual Duration: Day(s): (3 days of symptoms) Associated Symptoms: Reports: Fever/Chills, Malaise, Other (Generalized body aches). Denies: Confusion, Chest Pain, Cough, Shortness of Breath Upper Headache Pain Score (Numeric/FACES): 3 - Related Data Allergies Allergy/AdvReac Type Severity Reaction Status Date / Time No Known Allergies Allergy Verified 07/26/21 22:13 Home Meds: Home Meds Sertraline [Zoloft] 50 mg PO DAILY 04/24/21 [History] cloNIDine HCL [Clonidine HCl] 0.1 mg PO BID 04/24/21 [History] nitrofurantoin macrocrystaL [Nitrofurantoin] 100 mg PO BID 07/26/21 [History] Past Medical History - Past Health History Medical/Surgical History: Denies Medical/Surgical History HEENT History: Reports: Impaired Vision Other HEENT History: c/o of L upper tooth pain Genitourinary History: Reports: None STOPPER MAKER History: Reports: Ectopic , Other STOPPER MAKER History: G-5 P-4 Musculoskeletal History: Reports: Fracture Psychiatric History: Reports: Addiction, Anxiety, Depression, PTSD Endocrine/Metabolic History: Reports: Obesity/BMI 30+ Hematologic History: Reports: Anemia Dermatologic History: Reports: Cellulitis - Infectious Disease History Infectious Disease History: Reports: Chicken Pox, Novel Coronavirus, Other (See Below) Other Infectious Disease History: tested for hep c but havent gotten results yet - Past Surgical History Head Surgeries/Procedures: Reports: None HEENT Surgical History: Reports: None Female Surgical History: Reports: Salpingo-Oophorectomy Other Female Surgeries/Procedures: right Endocrine Surgical History: Reports: None Musculoskeletal Surgical History: Reports: Other (See Below) Other Musculoskeletal Surgeries/Procedures:: hand surgery Dermatological Surgical History: Reports: None Social & Family History - Tobacco Use Tobacco Use Status *Q: Never Tobacco User - Caffeine Use Caffeine Use: Reports: Coffee, Soda - Recreational Drug Use Recreational Drug Use: No ED ROS GENERAL - Review of Systems Review Of Systems: See Below Constitutional: Reports: Fever, Chills, Malaise HEENT: Reports: Rhinitis Respiratory: Denies: Shortness of Breath, Cough Cardiovascular: Denies: Chest Pain Musculoskeletal: Reports: Muscle Pain (Generalized body aches) Skin: Reports: No Symptoms. Denies: Rash Neurological: Reports: Headache (Minimal mild headache) ED EXAM, GENERAL - Physical Exam Exam: See Below Exam Limited By: No Limitations General Appearance: Alert, No Apparent Distress Eye Exam: Bilateral Eye: Normal Inspection Ears: Normal TMs Throat/Mouth: Other (Mild pharyngeal erythema, no tonsillar swelling) Neck: No: Lymphadenopathy (R), Lymphadenopathy (L) Respiratory/Chest: No Respiratory Distress, Lungs Clear Cardiovascular: Regular Rate, Rhythm Neurological: Alert, Oriented Psychiatric: Normal Affect, Normal Mood Skin Exam: Warm, Dry Course - Vital Signs Last Recorded V/S: Last Vital Signs Temp 98.0 F 07/26/21 22:15 Pulse 95 07/26/21 22:15 Resp 16 07/26/21 22:15 BP 105/56 L 07/26/21 22:15 Pulse Ox 97 07/26/21 22:15 - Orders/Labs/Meds Orders: Active Orders 24 hr Category Date Time Status CULTURE STREP A CONFIRMATION [RM] Routine Lab 07/26/21 22:26 Results STREP SCRN A RAPID W CULT CONF [RM] Routine Lab 07/26/21 22:26 Results Labs: Laboratory Tests 07/26/21 Range/Units 22:26 SARS CoV-2 RNA Rapid BRENDA Negative - Re-Assessments/Exams Free Text/Narrative Re-Assessment/Exam: 07/26/21 22:36 Rapid strep and Covid test were obtained. 07/26/21 23:13 Both tests are negative, patient remained relatively asymptomatic and normal vitals. She was reassured and encouraged to continue her antibiotic as p rescribed. Departure - Departure Time of Disposition: 23:19 Disposition: Home, Self-Care 01 Clinical Impression: UTI (urinary tract infection) Qualifiers: Urinary tract infection type: acute cystitis Hematuria presence: without matt turia Qualified Code(s): N30.00 - Acute cystitis without hematuria - Discharge Information Instructions: Urinary Tract Infection, Adult Referrals: PCP,Unknown [Primary Care Provider] - Forms: ED Department Discharge Care Plan Goals: Continue medications as prescribed, Tylenol or ibuprofen may be helpful with body aches or low-grade fevers. Sepsis Event Note (ED) - Evaluation Sepsis Screening Result: No Definite Risk - Focused Exam Vital Signs: Vital Signs Temp Pulse Resp BP Pulse Ox 07/26/21 22:15 98.0 F 95 16 105/56 L 97 07/26/21 21:55 98.0 F 95 16 105/56 L 97 - My Orders Last 24 Hours: My Active Orders 07/26/21 22:26 CULTURE STREP A CONFIRMATION [RM] Routine STREP SCRN A RAPID W CULT CONF [RM] Routine - Assessment/Plan Last 24 Hours: My Active Orders 07/26/21 22:26 CULTURE STREP A CONFIRMATION [RM] Routine STREP SCRN A RAPID W CULT CONF [RM] Routine
== END 2021-07-26 23:22 | disposition home or self-care (01) ==
LOC: JP.ED 21:01
DX: N30.00 Acute cystitis without hematuria (principal); E66.9 Obesity, unspecified; Z68.41 Body mass index [BMI] 40.0-44.9, adult; Z20.822 Contact with and (suspected) exposure to COVID-19
CPT/HCPCS: 87081; 87880-QW; 99283; U0002

== ENCOUNTER 2021-10-31 08:26 | Day surgery (SDC) | payer MEDICAID ==
[2021-10-31] MEDS: Sodium Chloride 0.9% 1,000 ML IV SCH (09:46)
[2021-10-31] MEDS ORDERED: Ondansetron 4 MG/2 ML SDV ONE (10:54)
[2021-10-31] MEDS ORDERED: Propofol 200 MG/20 ML SDV ONE ×2 (10:54→12:00)
[2021-10-31] MEDS ORDERED: Neostigmine Methylsulfate 1 MG/ML 5 ML Syringe ONE (10:54)
[2021-10-31] MEDS ORDERED: fentaNYL 250 MCG/5 ML SDV ONE ×2 (10:54→12:01)
[2021-10-31] MEDS ORDERED: Dexamethasone 4 MG/ML SDV ONE (10:54)
[2021-10-31] MEDS ORDERED: Glycopyrrolate 0.2 MG/ML 5 ML MDV ONE (10:54)
[2021-10-31] MEDS ORDERED: Rocuronium 50 MG/5 ML Vial ONE (10:54)
[2021-10-31] MEDS ORDERED: Succinylcholine 200 MG/10 ML MDV ONE (10:54)
[2021-10-31] MEDS: ceFAZolin 2 GM in Premix Bag 1 BAG IV ONE (11:05)
[2021-10-31] MEDS: metroNIDAZOLE/Normal Saline 500 MG in Premix Bag 1 BAG IV ONE (11:06)
[2021-10-31] MEDS ORDERED: Ketorolac 30 MG/ML SDV ONE (12:00)
[2021-10-31] MEDS: Lidocaine 1% with EPINEPHrine 1:100,000 50 ML MDV ONE (12:16)
[2021-10-31] MEDS: Bupivacaine 0.5% 50 ML MDV ONE (12:16)
[2021-10-31] MEDS ORDERED: Sugammadex Sodium 200 MG/2 ML VIAL ONE (12:25)
[2021-10-31] MEDS ORDERED: fentaNYL 100 MCG/2 ML SDV IVPUSH PRN ×3 (12:28)
[2021-10-31] MEDS ORDERED: hydrOXYzine HCL 100 MG/2 ML SDV IM PRN (12:28)
[2021-10-31] MEDS ORDERED: Ondansetron 4 MG/2 ML SDV IVPUSH PRN (12:28)
[2021-10-31] MEDS ORDERED: Docusate Sodium 100 MG Cap PO PRN (12:28)
[2021-10-31] MEDS ORDERED: Benzocaine/Cetylpyridinium/Menthol Lozenge MUCMEM PRN (12:28)
[2021-10-31] MEDS ORDERED: Zolpidem 5 MG Tab PO PRN (12:28)
[2021-10-31] MEDS: Acetaminophen/HYDROcodone 325-5 MG Tab PO PRN (13:43)
[2021-10-31] MEDS: Scopolamine 1.5 MG Transdermal Patch TOP SCH (13:44)
[2021-10-31 14:43] VITALS: BP 117/76; PULSE 62
[2021-10-31] MEDS ORDERED: SCOPOLAMINE PATCH CHECK TOP SCH (16:00)
--- NOTE | 2021-11-01 09:11 | OR ---
DATE OF PROCEDURE: 10/31/2021 SURGEON: Edu Aguilar MD PROCEDURES: 1. Laparoscopic cholecystectomy. 2. Liver biopsy. COMPLICATIONS: None. OUTSIDE CUTTER: None. ANESTHETIC: General. RISKS: Risks, benefits, alternatives, and limitations including, but not limited to infection, bleeding, perforation of abdominal structures, cystic duct leaks, common bile duct injuries and other risks not listed here were explained to the patient and they wished to proceed. We also discussed the possibility of open surgery, chronic wounds, chronic pain, and other risks not listed here. PROCEDURE IN DETAIL: The patient was placed in supine position. A supraumbilical curvilinear incision was made. A Veress needle was used to enter the abdomen without abnormality. A drop test was performed without abnormality. The abdomen was subsequently insufflated. This was followed by an Optiview trocar, no evidence of enterotomy or injury was noted. An additional 10 and two 5 mm ports were entered under direct visualization. The liver biopsy was performed first. This was a Luis Felipe-Cut liver biopsy performed without difficulty. Electrocautery was used to address any bleeding afterwards. The gallbladder was retracted cephalad and infundibulum retracted inferolaterally. Using blunt dissection, a "clear view" of the gallbladder was obtained with a single pulsatile structure entering the gallbladder and a single non-pulsatile structure entering the gallbladder. The remaining one-third of the gallbladder was removed off the gallbladder bed without any difficulty. The artery was clipped and transected. The patient had a large non-tapering cystic duct. Therefore, this was transected using shetty load stapler. The gallbladder was removed through superior port using a bag. Abdomen was re-insufflated. The pressure was dropped. No evidence of enterotomy or injury was noted. Wounds were closed with 3-0 Vicryl and 4-0 Vicryl in interrupted running fashion. Dermabond was applied. The patient tolerated the procedure well. Edu Aguilar MD /[id number]
--- NOTE | 2021-11-01 09:11 | OR ---
DATE OF PROCEDURE: 10/31/2021 SURGEON: Edu Aguilar MD PROCEDURES: 1. Bilateral transversus abdominis plane blocks. 2. Bilateral rectus sheath blocks. COMPLICATION: None. SHANK SANDER: None. RISKS: Risks, benefits, alternatives, and limitations including, but not limited to infection, bleeding, injury to abdominal structures and other risks not listed here were explained to the patient, who wished to proceed. PROCEDURE IN DETAIL: The patient was placed in supine position. The left transversus abdominis plane was identified first. This was accessed using a 21-gauge needle then exchanged for a 20-gauge needle. 20% of the solution was injected. This was then performed on the other side. Bilateral rectus sheath blocks were also injected without difficulty. At no point was this advanced beyond the peritoneum. The procedure was performed in a same manner, same fashion, same technique, using the same sequence, and using the same equipment. Edu Aguilar MD /[id number]
== END 2021-10-31 14:30 | disposition home or self-care (01) ==
LOC: JP.SDS 08:26
PROVIDERS: ATTEND Surgery
DX: K80.10 Calculus of gallbladder with chronic cholecystitis without obstruction (principal); K75.9 Inflammatory liver disease, unspecified; F41.9 Anxiety disorder, unspecified; K21.9 Gastro-esophageal reflux disease without esophagitis; G43.909 Migraine, unspecified, not intractable, without status migrainosus; Z98.890 Other specified postprocedural states; Z79.899 Other long term (current) drug therapy
CPT/HCPCS: 47379; 47562; 81025; A9270; J0171; J0330; J0690; J1100; J1885; J2405; J2704; J2710; J2795; J3010; J3490; J7030; J7120

== ENCOUNTER 2021-11-03 10:08 | Emergency (ER) | payer MEDICAID ==
[2021-11-03] MEDS ORDERED: LORazepam 2 MG/ML SDV IVPUSH ONE (10:15)
[2021-11-03] MEDS ORDERED: Sodium Chloride 0.9% 1,000 ML IV SCH (10:15)
[2021-11-03 10:59] VITALS: BP 117/72; PULSE 66
[2021-11-03] MEDS ORDERED: HYDROmorphone 0.5 MG/0.5 ML Syringe IVPUSH ONE (11:21)
--- NOTE | 2021-11-03 11:26 | EDM.PDOC ---
ED HPI GENERAL MEDICAL PROBLEM - General Chief Complaint: General Stated Complaint: SURGERY ON SUNDAY, SOB, SHOULDER PAIN Time Seen by Provider: 11/03/21 10:15 Source of Information: Reports: Patient, Family History Limitations: Reports: No Limitations - History of Present Illness INITIAL COMMENTS - FREE TEXT/NARRATIVE: pt arrived with a history of having pain in her chest and feeling very sob. She was clearly hyperventilating on arrival. Onset: Today, Sudden, Other ( started this am. ) Duration: Hour(s): Location: Reports: Chest, Abdomen, Other (pt did have her GB removed on Sunday --3 days ago. ) Associated Symptoms: Reports: Shortness of Breath, Other ( abdomanal pain. ) Abdomen Pain Score (Numeric/FACES): 10 - Related Data Allergies Allergy/AdvReac Type Severity Reaction Status Date / Time No Known Allergies Allergy Verified 11/03/21 10:59 Home Meds: Home Meds Sertraline [Zoloft] 50 mg PO DAILY 04/24/21 [History] Acetaminophen [Tylenol] 650 mg PO Q6H PRN 10/27/21 [History] Past Medical History - Past Health History Medical/Surgical History: Denies Medical/Surgical History HEENT History: Reports: Impaired Vision Other HEENT History: c/o of L upper tooth pain Genitourinary History: Reports: None PATIENT INSURANCE CLERK History: Reports: Ectopic , Other PATIENT INSURANCE CLERK History: G-5 P-4 Musculoskeletal History: Reports: Fracture Psychiatric History: Reports: Addiction, Anxiety, Depression, PTSD Endocrine/Metabolic History: Reports: Obesity/BMI 30+ Hematologic History: Reports: Anemia Dermatologic History: Reports: Cellulitis - Infectious Disease History Infectious Disease History: Reports: Chicken Pox, Novel Coronavirus Other Infectious Disease History: tested for hep c but havent gotten results yet - Past Surgical History Head Surgeries/Procedures: Reports: None GI Surgical History: Reports: Cholecystectomy Female Surgical History: Reports: Salpingo-Oophorectomy, Other (See Below) Other Female Surgeries/Procedures: right ectopic Endocrine Surgical History: Reports: None Musculoskeletal Surgical History: Reports: Other (See Below) Other Musculoskeletal Surgeries/Procedures:: hand surgery Dermatological Surgical History: Reports: None Social & Family History - Family History Family Medical History: No Pertinent Family History - Tobacco Use Tobacco Use Status *Q: Never Tobacco User - Caffeine Use Caffeine Use: Reports: None - Recreational Drug Use Recreational Drug Use: Yes Recreational Drug Type: Reports: Heroin, Methamphetamine ED ROS GENERAL - Review of Systems Review Of Systems: See Below Constitutional: Reports: Diaphoresis HEENT: Reports: No Symptoms Respiratory: Reports: Shortness of Breath, Other (pt is hyperventilating. ) Cardiovascular: Reports: Lightheadedness Endocrine: Reports: No Symptoms GI/Abdominal: Reports: Abdominal Pain, Other (pt had her GB removed on Sunday. ) : Reports: No Symptoms Musculoskeletal: Reports: No Symptoms Skin: Reports: No Symptoms ED EXAM, GENERAL - Physical Exam Exam: See Below Free Text/Narrative:: pt arrived feeling very sob and hyperventilating. She had GB surgery on Sunday. Exam Limited By: No Limitations General Appearance: Alert, Anxious, Moderate Distress Ears: Normal TMs Nose: Normal Inspection Throat/Mouth: Normal Inspection Head: Atraumatic Neck: Normal Inspection Respiratory/Chest: Decreased Breath Sounds, Other (pt is clearly hyperventilating. ) Cardiovascular: Regular Rate, Rhythm, Tachycardia GI/Abdominal: Soft, Tender, Other (pt is tender around the surgical site. ) (Female) Exam: Deferred Rectal (Female) Exam: Deferred Back Exam: Normal Inspection Extremities: Normal Inspection Neurological: Alert, Oriented, Normal Cognition Psychiatric: Anxious, Other (pt was extremely anxious. ) Course - Vital Signs Last Recorded V/S: Last Vital Signs Temp 36.1 C 11/03/21 10:10 Pulse 66 11/03/21 10:10 Resp 20 11/03/21 10:10 BP 117/72 11/03/21 10:10 Pulse Ox 96 11/03/21 10:10 - Orders/Labs/Meds Orders: Active Orders 24 hr Category Date Time Status DRUG SCREEN, URINE [URCHEM] Stat Lab 11/03/21 12:59 Ordered Sodium Chloride 0.9% [Normal Saline] 1,000 ml Med 11/03/21 10:15 Active IV ASDIRECTED cefTRIAXone [Rocephin] 1 gm Med 11/03/21 15:08 Active Sodium Chloride 0.9% [Normal Saline AdvBag] 50 ml IV ONETIME Medication Orders Sodium Chloride (Normal Saline) 1,000 mls @ 999 mls/hr IV ASDIRECTED YANG Last Admin: 11/03/21 10:48 Dose: 999 mls/hr Documented by: VINITA Ceftriaxone Sodium 1 gm/ (Sodium Chloride) 50 mls @ 100 mls/hr IV ONETIME ONE Stop: 11/03/21 15:37 Labs: Laboratory Tests 11/03/21 11/03/21 11/03/21 Range/Units 10:24 10:24 11:24 WBC 14.3 H (4.5-11.0) K/uL RBC 4.91 (3.30-5.50) M/uL Hgb 13.1 D (12.0-15.0) g/dL Hct 40.2 (36.0-48.0) % MCV 82 (80-98) fL MCH 27 (27-31) pg MCHC 33 (32-36) % Plt Count 477 H (150-400) K/uL Neut % (Auto) 70.1 H (36-66) % Lymph % (Auto) 23.1 L (24-44) % [place] % (Auto) 6.1 H (2-6) % Eos % (Auto) 0.4 L (2-4) % Baso % (Auto) 0.3 (0-1) % D-Dimer, Quantitative 1037.87 H (0.0-500.0) ng/mL Sodium (140-148) mmol/L Potassium (3.6-5.2) mmol/L Chloride (100-108) mmol/L Carbon Dioxide (21-32) mmol/L Anion Gap (5.0-14.0) mmol/L BUN (7-18) mg/dL Creatinine (0.6-1.0) mg/dL Est Cr Clr Drug Dosing mL/min Estimated GFR (MDRD) (>60) BUN/Creatinine Ratio Glucose (74-106) mg/dL Calcium (8.5-10.1) mg/dL Total Bilirubin (0.2-1.0) mg/dL AST (15-37) U/L ALT (12-78) U/L Alkaline Phosphatase (46-116) U/L Total Protein (6.4-8.2) g/dL Albumin (3.4-5.0) g/dL Globulin (2.3-3.5) g/dL Albumin/Globulin Ratio (1.2-2.2) Meds: Medications Generic Name Dose Route Start Last Admin Trade Name Freq PRN Reason Stop Dose Admin Sodium Chloride 1,000 mls @ 999 mls/hr 11/03/21 10:15 11/03/21 10:48 Normal Saline IV 999 mls/hr ASDIRECTED YANG Administration Ceftriaxone Sodium 1 gm/ 50 mls @ 100 mls/hr 11/03/21 15:08 Sodium Chloride IV 11/03/21 15:37 ONETIME ONE Discontinued Medications Generic Name Dose Route Start Last Admin Trade Name Bianca PRN Reason Stop Dose Admin Hydromorphone HCl 0.5 mg 11/03/21 11:21 11/03/21 11:26 Hydromorphone 0.5 Mg/0.5 Ml Syringe IVPUSH 11/03/21 11:22 0.5 mg ONETIME ONE Administration Sodium Chloride 100 mls @ 3 mls/sec 11/03/21 13:00 11/03/21 14:11 Normal Saline IV 11/03/21 13:01 3 mls/sec ASDIRECTED YANG Administration Iopamidol 100 ml 11/03/21 13:00 11/03/21 14:11 Iopamidol 755 Mg/Ml 100 Ml Bottle IV 11/03/21 13:01 100 ml . DIRECTED YANG Administration Lorazepam 1 mg 11/03/21 10:15 11/03/21 10:55 Lorazepam 2 Mg/Ml Sdv IVPUSH 11/03/21 10:16 1 mg ONETIME ONE Administration Sodium Chloride 10 ml 11/03/21 13:00 11/03/21 14:11 Sodium Chloride 0.9% 10 Ml Sdv FLUSH 11/03/21 13:01 10 ml ONETIME ONE Administration - Re-Assessments/Exams Free Text/Narrative Re-Assessment/Exam: 11/03/21 15:19 pt was given ativan 1 mg iv. which did calm her down. She had a chest xray which showed bilateral infiltrates, Her ddimer was high and she ended up with a angio of the chest. This looked like a pneumonia. Departure - Departure Time of Disposition: 15:11 Disposition: Home, Self-Care 01 Condition: Fair Clinical Impression: Bilateral pneumonia, History of cholecystectomy - Discharge Information Referrals: Meaghan Burch PA-C [Primary Care Provider] - Forms: ED Department Discharge Care Plan Goals: push fluids, zithromax 500mg now and 250 daily, incentive spiromter, appt with Dr Aguilar in 3-4 days. Sepsis Event Note (ED) - Evaluation Sepsis Screening Result: No Definite Risk - Focused Exam Vital Signs: Vital Signs Temp Pulse Resp BP Pulse Ox 11/03/21 10:10 36.1 C 66 20 117/72 96 - My Orders Last 24 Hours: My Active Orders 11/03/21 10:15 Sodium Chloride 0.9% [Normal Saline] 1,000 ml IV ASDIRECTED 11/03/21 12:59 DRUG SCREEN, URINE [URCHEM] Stat 11/03/21 15:08 cefTRIAXone [Rocephin] 1 gm Sodium Chloride 0.9% [Normal Saline AdvBag] 50 ml IV ONETIME - Assessment/Plan Last 24 Hours: My Active Orders 11/03/21 10:15 Sodium Chloride 0.9% [Normal Saline] 1,000 ml IV ASDIRECTED 11/03/21 12:59 DRUG SCREEN, URINE [URCHEM] Stat 11/03/21 15:08 cefTRIAXone [Rocephin] 1 gm Sodium Chloride 0.9% [Normal Saline AdvBag] 50 ml IV ONETIME
--- NOTE | 2021-11-03 11:45 | CR ---
CHEST: Portable 11/03/2021 and 11:26 AM CLINICAL HISTORY:Chest pain, SOB COMPARISON:April 10 FINDINGS: There is less than optimal inspiration. This does exaggerate the lung markings. There is some minimal patchy densities in both lower lung hunter. Heart and pulmonary vascular normal. There are no effusions IMPRESSION: Poor aspiration limits exam Increased lung markings in both lung bases may represent some patchy atelectasis. Early infiltrates are not excluded. If clinically relevant, upright two-view chest would be helpful
[2021-11-03] MEDS ORDERED: Sodium Chloride 0.9% 10 ML SDV FLUSH ONE (13:00)
[2021-11-03] MEDS ORDERED: Iopamidol 755 Mg/ML 100 ML Bottle IV SCH (13:00)
[2021-11-03] MEDS ORDERED: Sodium Chloride 0.9% 100 ML IV SCH (13:00)
--- NOTE | 2021-11-03 15:00 | CT ---
Ang Chest CLINICAL HISTORY: Chest pain and SOB TECHNIQUE: Thin section axial contiguous tomographic sections were taken through the chest after bolus IV iodinated contrast administration. Coronal and sagittal images were reconstructed. Auto dosage reduction and iterative reconstruction techniques employed. FINDINGS: There is a moderate amount of [id number] due to patient's large body habitus. There are some tiny areas of poor contrast opacification or filling defects in the left lower lobe branching arteries. A few small pulmonary emboli here would be difficult to exclude. There are scattered mild groundglass opacities in both upper lobes. There are groundglass opacifications and some patchy infiltrate in both lung bases. There is also some patchy atelectasis in the costophrenic angles. No mediastinal mass or suspicious lymphadenopathy is seen. There is a small hiatal hernia. IMPRESSION: Bilateral groundglass opacities and some patchy bilateral lower lobe densities suggesting pneumonitis. Limited resolution due to increased signal lies due to patient's large body habitus. There are some irregular opacifications of left lower lobe smaller branching vessels. Small clots would be difficult to exclude with certainty. Moderate elevation of the right hemidiaphragm of unknown etiology ER was notified at the time of this dictation
[2021-11-03] MEDS ORDERED: cefTRIAXone 1 GM in Sodium Chloride 0.9% 50 ML IV ONE (15:08)
== END 2021-11-03 16:37 | disposition home or self-care (01) ==
LOC: JP.ED 10:08
DX: J18.9 Pneumonia, unspecified organism (principal); E66.9 Obesity, unspecified; Z68.41 Body mass index [BMI] 40.0-44.9, adult; Z90.49 Acquired absence of other specified parts of digestive tract
CPT/HCPCS: 36415; 71045; 71045-26; 71275; 71275-26; 80053; 85025; 85379; 96365; 96375; 99285-25; J0696; J1170; J2060; J7030; Q9967

== ENCOUNTER 2022-02-28 15:04 | Emergency (ER) | payer MEDICAID ==
[2022-02-28 15:55] VITALS: BP 124/81; PULSE 99
== END 2022-02-28 18:20 | disposition home or self-care (01) ==
LOC: JP.ED 15:04
DX: O23.11 Infections of bladder in pregnancy, first trimester (principal); Z3A.01 Less than 8 weeks gestation of pregnancy
CPT/HCPCS: 36415; 80048; 81001; 84702; 85025; 87086; 99282; 99283

== ENCOUNTER 2022-03-17 15:35 | Emergency (ER) | payer MEDICAID ==
[2022-03-17 16:34] VITALS: BP 126/65; PULSE 61
== END 2022-03-17 17:36 | disposition home or self-care (01) ==
LOC: JP.ED 15:35
DX: O20.9 Hemorrhage in early pregnancy, unspecified (principal); Z3A.01 Less than 8 weeks gestation of pregnancy
CPT/HCPCS: 36415; 84702; 99282; 99284

== ENCOUNTER 2023-01-13 12:33 | Emergency (ER) | payer MEDICAID ==
[2023-01-13 12:53] VITALS: BP 120/60; PULSE 78
[2023-01-13 13:40] LABS: ESTIMATED GFR 117 mL/min (>60)
== END 2023-01-13 14:18 | disposition home or self-care (01) ==
LOC: JP.ED 12:33
DX: R07.89 Other chest pain (principal); G89.29 Other chronic pain; E66.9 Obesity, unspecified; Z68.37 Body mass index [BMI] 37.0-37.9, adult; Z86.16 Personal history of COVID-19
CPT/HCPCS: 36415; 80048; 80305-QW; 85025; 85379; 85651; 93005; 99285